=== PATIENT | female | born 1955 | race Caucasian/White ===

== ENCOUNTER 2018-01-30 10:30 | Outpatient (CLI) | payer OTHER ==
[~2018-01-30] VITALS: Ht 162.6 cm; Wt 102.1 kg
[~2018-01-30 10:30] MED LIST: CYCL-97 PO; ENAL5TAB PO; HYDR-2890 PO; HYDR1TAB PO; INSU100V8; METF-399 PO; MTF500T PO; SIMV10TA3 PO; SIMV20TA3 PO
[2018-01-30] MEDS ORDERED: INSU100I29 SQ (10:42)
[2018-01-30] MEDS ORDERED: LISI-552 PO (10:42)
[2018-01-30] MEDS ORDERED: CITA40TA11 PO (10:42)
== END 2018-01-30 10:46 | disposition home or self-care (01) ==
LOC: PREOP 10:30
PROVIDERS: ATTEND Surgery
DX: Z01.818 Encounter for other preprocedural examination (principal)

== ENCOUNTER 2018-02-03 07:34 | Day surgery (SDC) | payer SELFPAY ==
[~2018-02-03] VITALS: Ht 162.6 cm; Wt 102.1 kg
[~2018-02-03 07:34] MED LIST changes: +CITA40TA11 PO; +INSU100I29 SQ; +LISI-552 PO
[2018-02-03] MEDS ORDERED: NS IV 500 ML 500 ML ONE (07:49)
[2018-02-03] MEDS ORDERED: NS IV 500 ML 500 ML IV PRN (07:49)
[2018-02-03 08:00] VITALS: BP 144/72
[2018-02-03] MEDS ORDERED: fentaNYL INJECTION 100 MCG/2 ML AMP IVP ONE (08:00)
--- NOTE | 2018-02-03 10:01 | Conscious Sedation/ASA ---
Conscious Sedation Pre-Proced Time Reviewed: 10:01 ASA Class: 2 Airway Mallampati Classification: (redding appropriate class) I. II. III, IV Lungs Heart ASA score ASA 1: a normal healthy patient ASA 2: a patient with a mild systemic disease (mid diabetes, controlled hypertension, obesity ASA 3: a patient with a severe systemic disease that limits activity (angina , COPD, prior Myocardial infarction) ASA 4: a patient with an incapacitating disease that is a constant threat to life (CHF, renal failure) ASA 5: a moribund patient not expected to survive 24 hrs. (ruptured aneurysm) ASA 6: a declared brain patient whose organs are being harvested. For emergent operations, add the letter E after the classification Grade 1 Sedation Plan: Discussed options with patient/fam Note The patient is an appropriate candidate to undergo the planned procedure, sedation, and anesthesia. The patient immediately re-assessed prior to indication. ANNETTE MCNAMARA MD Feb 03, 2018 10:01
--- NOTE | 2018-02-03 10:01 | History & Physicial ---
History of Present Illness History of Present Illness Reason for visit/HPI to undergo colonoscopy regarding chronic diarrhea. Date of Admission 02/03/18 Date Seen by Provider: Feb 03, 2018 Time Seen by Provider: 10:00 I consulted on this patient on 02/03/18 09:59 Attending Physician Annette Mcnamara MD Admitting Physician Izabela Anna DO Consult Allergies and Home Medications Allergies Coded Allergies: No Known Drug Allergies (Verified , 12/26/06) Home Medications Citalopram Hydrobromide 40 Mg Tablet, 40 MG PO DAILY, (Reported) Insulin Detemir 100 Unit/1 Ml Insuln.pen, 25 UNIT SQ BID, (Reported) Lisinopril 20 Mg Tablet, 20 MG PO DAILY, (Reported) Metformin HCl 1,000 Mg Tablet, 1,000 MG PO BID WITH MEALS, (Reported) Simvastatin 20 Mg Tablet, 20 MG PO HS, (Reported) Patient Home Medication List Home Medication List Reviewed: Yes Past Uesqnwy-Lhvvpj-Tapyfj Hx Patient Social History Marrital Status: Employed/Student: unemployed Alcohol Use: Denies Use Recreational Drug Use: No Smoking Status: Never a Smoker Recent Foreign Travel: No Contact w/other who traveled: No Recent Hopitalizations: No Recent Infectious Disease Expo: No Immunizations Up To Date Date of Influenza Vaccine: Feb 25, 2012 Seasonal Allergies Seasonal Allergies: Yes Surgeries Gallbladder Reproductive System Hx Reproductive Disorders: No Gastrointestinal Chronic Diarrhea Psychosocial Behavioral Health Disorders: Depression Review of Systems Constitutional: no symptoms reported EENTM: no symptoms reported Respiratory: no symptoms reported Cardiovascular: no symptoms reported Gastrointestinal: see HPI Genitourinary: no symptoms reported Musculoskeletal: no symptoms reported Skin: no symptoms reported Psychiatric/Neurological: No Symptoms Reported Physical Exam Vital Signs Capillary Refill : Height, Weight, BMI Height: 5'4.00" Weight: 225lbs. 0.0oz. 102.577676lj; 38.6 BMI Method: General Appearance: No Apparent Distress Neck: Normal Inspection Respiratory: Lungs Clear Cardiovascular: Regular Rate, Rhythm Gastrointestinal: Non Tender, Soft Rectal: Deferred Neurologic/Psychiatric: Alert, Oriented x3 Skin: Warm/Dry Assessment/Plan Assessment and Plan lady with chronic diarrhea. For colonoscopy. Discussed in detail. Admission Diagnosis Admission Status: Other (Outpt Proc) ANNETTE MCNAMARA MD Feb 03, 2018 10:01
[2018-02-03] MEDS ORDERED: fentaNYL INJECTION 100 MCG/2 ML AMP ONE ×2 (10:09)
[2018-02-03] MEDS ORDERED: MIDAZOLAM 2 MG/2 ML (VERSED) VIAL ONE ×4 (10:09→10:10)
[2018-02-03] MEDS: MIDAZOLAM 2 MG/2 ML (VERSED) VIAL IVP ONE (10:20)
--- NOTE | 2018-02-03 10:25 | Endo Procedure Record ---
Endo Procedure Report Date of Procedure Last Colonoscopy: No Feb 03, 2018 Surgeon (s) ANNETTE MCNAMARA MD Post Procedure/Op Diagnosis very few sigmoid diverticula Procedure Performed colonoscopy to cecum Description of Procedure Anesthesia Type: Conscious Sedation Specimen(s) collected/removed none Description of the Procedure Indication for the procedure: This lady came in for colonoscopy to investigate long-standing diarrhea. She denied any family history of colon cancer or polyps. Informed consent was obtained after reviewing the procedure in detail. Description of procedure: She was placed in left lateral rectus position and her vital signs were monitored. Conscious sedation was achieved using Versed and fentanyl. Digital rectal examination was unremarkable. The colonoscope was then introduced into the rectum and advanced all the way up to the cecum. It was then withdrawn slowly and the mucosa examined in a systematic fashion. Findings: Very few sigmoid diverticulae. She tolerated the procedure well and was taken back to the nursing area in a stable condition. Impression: Chronic diarrhea. No contributing factors. Possibly postcholecystectomy in nature. Will treat accordingly. Copy Copies To 1: LUIZA MARVIN XAVIER M MD Feb 03, 2018 10:25
--- NOTE | 2018-02-03 10:42 | Discharge Inst-Simple/Standard ---
Discharge Inst-Standard Discharge Medications New, Converted or Re-Newed RX: Other Patient Instructions/Follow Up Plan of Care/Instructions/FU: repeat screening colonoscopy in 10 years Activity as Tolerated: Yes Discharge Diet: ADA Diet ANNETTE MCNAMARA MD Feb 03, 2018 10:42
[2018-02-03 11:20] VITALS: BP 121/78
[2018-02-03 12:00] VITALS: BP 138/62
[2018-02-03 12:10] VITALS: BP 138/62
== END 2018-02-03 12:10 | disposition home or self-care (01) ==
LOC: ENDO 07:34
PROVIDERS: ATTEND Surgery
DX: K57.30 Diverticulosis of large intestine without perforation or abscess without bleeding (principal); K52.9 Noninfective gastroenteritis and colitis, unspecified; F32.9 Major depressive disorder, single episode, unspecified; Z79.4 Long term (current) use of insulin; Z79.899 Other long term (current) drug therapy
CPT/HCPCS: 82962

== ENCOUNTER 2018-04-12 12:57 | Emergency (ER) | payer SELFPAY ==
[~2018-04-12] VITALS: Ht 162.6 cm; Wt 90.7 kg
[2018-04-12] MEDS ORDERED: ORPHENADRINE 60 MG/2 ML (NORFLEX) AMP IM ONE (13:15)
[2018-04-12] MEDS ORDERED: KETOROLAC 60 MG/2 ML VIAL IM ONE (13:15)
--- NOTE | 2018-04-12 13:48 | ED Hip Pain/Injury ---
General Chief Complaint: Hip/Pelvic Problems Stated Complaint: LEFT HIP PAIN Nursing Triage Note: PT CO OF L HIP PAIN, STATES STARTED A FEW DAYS AGO RATES PAIN 10/10 UPON MOVEMENT CO OF BURNING PAIN. STATES HAS BEEN STUCK ON STOOL FOR 1 HOUR. DENIES INJURY AT THIS X. PT TO ROOM 8 BY W/C Source: patient Exam Limitations: no limitations History of Present Illness Date Seen by Provider: Apr 12, 2018 Time Seen by Provider: 13:00 Initial Comments Patient is a 63 year old female who present to the emergency room with left hip pain for the past few days. She describes the pain as a burning sensation that is worse when she sits down. She reports that the pain shoots down her left leg. Denies injury. Timing/Duration: changing over time Location: hip (L) Method of Injury: unknown Associated Symptoms: pain radiating to knees Allergies and Home Medications Allergies Coded Allergies: No Known Drug Allergies (Verified , 12/26/06) Home Medications Citalopram Hydrobromide 40 Mg Tablet, 40 MG PO DAILY, (Reported) Insulin Detemir 100 Unit/1 Ml Insuln.pen, 25 UNIT SQ BID, (Reported) Lisinopril 20 Mg Tablet, 20 MG PO DAILY, (Reported) Metformin HCl 1,000 Mg Tablet, 1,000 MG PO BID WITH MEALS, (Reported) Prednisone 20 Mg Tab, 40 MG PO DAILY Prescribed by: ORSY SILVA on 04/12/18 1415 Simvastatin 20 Mg Tablet, 20 MG PO HS, (Reported) Patient Home Medication List Home Medication List Reviewed: Yes Review of Systems Constitutional: no symptoms reported, see HPI Musculoskeletal: see HPI, joint pain (left hip/buttocks) All Other Systems Reviewed Negative Unless Noted: Yes Past Nornwnu-Osyucf-Tsqqff Hx Past Med/Social Hx: Reviewed Nursing Past Med/Soc Hx Patient Social History Alcohol Use: Denies Use Recreational Drug Use: No Smoking Status: Never a Smoker Recent Foreign Travel: No Contact w/Someone Who Travel: No Recent Infectious Disease Expo: No Recent Hopitalizations: No Physical Abuse: No Sexual Abuse: No Immunizations Up To Date Date of Influenza Vaccine: Feb 25, 2012 Seasonal Allergies Seasonal Allergies: Yes Past Medical History Surgeries: Yes (X2 CYSTS EYELID, GANGLION CYST WRIST) Gallbladder Respiratory: No Cardiac: No Neurological: No Reproductive Disorders: No Gastrointestinal: Yes Chronic Diarrhea Musculoskeletal: No Endocrine: Yes Cancer: No Psychosocial: Yes Depression Integumentary: No Blood Disorders: Yes (anemia at times) Family Medical History Reviewed Nursing Family Hx Physical Exam Vital Signs Vital Signs - First Documented 04/12/18 13:00 Temp 98.1 Pulse 84 Resp 18 B/P (MAP) 184/85 (118) Pulse Ox 100 Capillary Refill : Less Than 3 Seconds Height, Weight, BMI Height: 5'4.00" Weight: 200lbs. 0.0oz. 90.587813vv; 38.6 BMI Method:Stated General Appearance: No Apparent Distress, WD/WN Neck: Full Range of Motion, Normal Inspection, Non Tender, Supple Cardiovascular: Regular Rate, Rhythm, No Edema, No Gallop, No JVD, No Murmur, Normal Peripheral Pulses Respiratory: Chest Non Tender, Lungs Clear, Normal Breath Sounds, No Accessory Muscle Use, No Respiratory Distress, Accessory Muscle Use Extremity: Normal Capillary Refill, Normal Inspection, Normal Range of Motion, Non Tender, No Calf Tenderness, No Pedal Edema Neurologic/Psychiatric: Alert, Oriented x3, Normal Mood/Affect Skin: Normal Color, Warm/Dry Progress/Results/Core Measures Results/Orders My Orders Orders - ROSY SILVA Pelvis With Left Hip 2-3 Views (04/12/18 13:11) Ketorolac Injection (Toradol Injection) (04/12/18 13:15) Orphenadrine Injection (Norflex Injectio (04/12/18 13:15) Medications Given in ED Vital Signs/I&O 04/12/18 04/12/18 13:00 14:27 Temp 98.1 98.1 Pulse 84 84 Resp 18 18 B/P (MAP) 184/85 (118) 184/85 (118) Pulse Ox 100 100 Blood Pressure Mean: 118 Progress Progress Note : Time: 14:12 Progress Note Patient is feeling better after medication administration. Was able to transfer to a bedside commode to void without difficulty. I've informed her of her imaging studies and plan of care. She agrees with plans for discharge and follow up with [facility]. Voices no questions or concerns. Diagnostic Imaging Diagonstic Imaging: Xray Plain Films/CT/US/NM/MRI: pelvis, hip Comments VIA [facility]. [place], [place] NAME: SKYE WILSON [facility] REC#: [id number] PT STATUS: REG ER : 1955 PHYSICIAN: ROSY SILVA ADMIT DATE: 04/12/18/ER Draft Date of Exam:04/12/18 PELVIS WITH LEFT HIP 2-3 VIEWS INDICATION: Left hip pain. COMPARISON: None. FINDINGS: Single view of the pelvis and two views of left hip demonstrate minimal degenerative changes of both hips. There is no fracture, dislocation or osseous lesion. IMPRESSION: Minimal degenerative joint disease. Dictated on workstation # [id number] Dict: 04/12/18 1345 Trans: 04/12/18 1349 KB [id number] Interpreted by: AMAYA DUARTE Electronically signed by: Reviewed: Reviewed by Me Departure Impression Primary Impression: Sciatic nerve pain Disposition: HOME, SELF-CARE Condition: Stable/Unchanged Departure-Patient Inst. Decision time for Depature: 14:11 Referrals: [facility] (PCP/Family) Primary Care Physician Patient Instructions: Sciatica (DC), Sciatica Exercises Add. Discharge Instructions: Take medications as directed. Be sure to keep a close eye on your blood sugars as the steroid will elevate them indigestion or insulin accordingly. You may use ibuprofen and Tylenol as directed by the bottle for pain relief. Follow-up with [facility] within 1 week for recheck. Call first thing Saturday morning for an appointment time. Return back to the emergency room for any worsening symptoms or concerns as needed. All discharge instructions reviewed with patient and/or family. Voiced understanding. Scripts Prednisone (Prednisone) 20 Mg Tab 40 MG PO DAILY for 4 Days, #8 TAB Prov: ROSY SILVA 04/12/18 ROSY SILVA Apr 12, 2018 13:48
[2018-04-12] MEDS ORDERED: PRD20T PO (14:15)
[2018-04-12 14:27] VITALS: BP 184/85
== END 2018-04-12 14:29 | disposition home or self-care (01) ==
LOC: EDUNIT# 12:57 → ER 12:59
DX: M54.32 Sciatica, left side (principal); M25.552 Pain in left hip; F32.9 Major depressive disorder, single episode, unspecified; Z79.4 Long term (current) use of insulin; Z79.52 Long term (current) use of systemic steroids; Z87.19 Personal history of other diseases of the digestive system